=== PATIENT | male | born 1995 | race Caucasian/White ===

== ENCOUNTER 2016-07-04 | Emergency (ER) | payer OTHER ==
[~2016-07-04] MED LIST: CLARITIN D PO; CONCERTA PO; FLEXERIL10 MG PO; IBUPROFEN200 M1 PO; NO MEDICATIONS; PERCOCET PO; PHENERGAN PO; SKELAXIN PO; VOLTAREN75 MG PO
[2016-07-04] MEDS ORDERED: GENOTROPIN PO (00:15)
[2016-07-04] MEDS ORDERED: PHENERGAN25 M1 PO (00:16)
[2016-07-04] MEDS ORDERED: TOPAMATE PO (00:16)
[2016-07-04] MEDS ORDERED: ZOFRAN ODT4 M1 PO (01:59)
[2016-07-04] MEDS ORDERED: PHENERGAN12.5 M2 PR (01:59)
== END 2016-07-04 01:59 | disposition home or self-care (01) ==
LOC: SED
DX: G43.909 Migraine, unspecified, not intractable, without status migrainosus (principal); F17.210 Nicotine dependence, cigarettes, uncomplicated; Z79.899 Other long term (current) drug therapy
CPT/HCPCS: 96361; 96374; 96375; 99284; J0780; J1200; J1885

== ENCOUNTER 2016-10-02 02:16 | Emergency (ER) | payer OTHER ==
[~2016-10-02 02:16] MED LIST changes: +GENOTROPIN PO; +PHENERGAN12.5 M2 PR; +PHENERGAN25 M1 PO; +TOPAMATE PO; +ZOFRAN ODT4 M1 PO
== END 2016-10-02 04:55 | disposition home or self-care (01) ==
LOC: CED 02:16
DX: G43.909 Migraine, unspecified, not intractable, without status migrainosus (principal); F17.210 Nicotine dependence, cigarettes, uncomplicated; Z79.899 Other long term (current) drug therapy
CPT/HCPCS: 36415; 96361; 96374; 96375; 99283; J1100; J1885; J2765